=== PATIENT | female | born 1980 | race Caucasian/White ===

== ENCOUNTER 2024-07-20 07:46 | Day surgery (SDC) | payer OTHER ==
[~2024-07-20] VITALS: Ht 152.4 cm; Wt 86.2 kg
[2024-07-20] MEDS ORDERED: fentaNYL citrate 0.05 MG/ML VIAL ONE (09:42)
[2024-07-20] MEDS ORDERED: MIDAZOLAM 5 MG/5 ML VIAL ONE (09:43)
[2024-07-20] MEDS: MIDAZOLAM 2 MG/2 ML VIAL IVP ONE (09:55)
== END 2024-07-20 11:15 | disposition home or self-care (01) ==
LOC: MMU 07:46 → MDS 07:46
PROVIDERS: ATTEND Internal Medicine Gastroenterology
DX: K21.9 Gastro-esophageal reflux disease without esophagitis (principal); I10 Essential (primary) hypertension; E78.00 Pure hypercholesterolemia, unspecified; Z90.49 Acquired absence of other specified parts of digestive tract; Z98.51 Tubal ligation status; K59.00 Constipation, unspecified; Z79.899 Other long term (current) drug therapy
CPT/HCPCS: 36415; 43239; 86677; J2250; J3010